=== PATIENT | female | born 1945 | race Caucasian/White ===

== ENCOUNTER → 2018-06-24 12:24 | Outpatient (CLI) | payer MEDICARE, OTHER, SELFPAY ==
[2018-06-24 13:13] LABS: Add Manual Diff / Slide Review NO; Basophils Percent Auto 0.7 % (0-2); Eosinophils Percent Auto 1.3 % (2-4); Hematocrit 38.5 % (36-46); Hemoglobin 13.2 g/dL (12.0-16.0); Lymphocytes Percent Auto 32.2 % (25-40); Mean Corpuscular HGB Conc 34.2 % (30-36); Mean Corpuscular Hemoglobin 32.4 PG (26-34); Mean Corpuscular Volume 94.9 fL (80-100); Monocytes Percent Auto 9.4 % (3-14); Neutrophils Absolute Auto 2400 /uL (3000-5900); Neutrophils Percent Auto 56.4 % (50-75); Platelet Count 234 X10^3/uL (150-400); Red Blood Cell Count 4.06 X10^6/uL (4.0-5.2); Red Cell Distribution Width 13.3 % (11.6-14.8); White Blood Cell Count 4.2 X10^3/uL (4.5-11.0)
[2018-06-24 13:15] LABS: Appearance Urine UA SL CLOUDY; Bilirubin Urine UA NEGATIVE (NEGATIVE); Color Urine UA YELLOW; Glucose Urine UA NEGATIVE (Normal); Ketones Urine UA NEGATIVE (NEGATIVE); Leukocyte Esterase Urine UA NEGATIVE (NEGATIVE); Nitrite Urine UA POSITIVE (Negative); Occult Blood Urine UA 1+ (Negative); Protein Urine UA NEGATIVE (Negative); Urobilinogen Urine UA 0.2 E.U./dL (0.2); pH Urine UA 5.5 (4.5-8.0)
[2018-06-24 13:19] LABS: Hemoglobin A1C% w Est Avg Glu 5.1 % (4.0-6.0)
[2018-06-24 13:29] LABS: Bacteria Urine Many (>30); Culture Indicated Urine Specimen Cultured; RBC Urine 1-5/HPF (0-5/HPF); WBC Urine 1-5/HPF (0-5/HPF)
[2018-06-24 13:56] LABS: BUN Creatinine Ratio 33.3 (6-22); Blood Urea Nitrogen 20 mg/dL (7-17); Calcium 9.7 mg/dL (8.4-10.2); Carbon Dioxide 32 mmol/L (22-32); Chloride 102 mmol/L (98-107); Estimated Glomerular Filt Rate > 60.0 mL/min (>60); Glucose 84 mg/dL (80-110); HEMOLYSIS < 15 (0-50); Potassium 4.2 mmol/L (3.4-5.1); Sodium 142 mmol/L (137-145)
== END ==
PROVIDERS: PCP Family Medicine; Visit Provider Orthopaedic Surgery
DX: Z01.818 Encounter for other preprocedural examination (principal); Z01.812 Encounter for preprocedural laboratory examination; N39.9 Disorder of urinary system, unspecified; R73.09 Other abnormal glucose
CPT/HCPCS: 36415; 80048; 81001; 83036; 85025; 87077; 87086; 87186; 93005

== ENCOUNTER 2018-07-23 05:46 | Inpatient (IN) | payer MEDICARE, OTHER, SELFPAY ==
[2018-07-10 09:32] VITALS: BMI 22.1
[2018-07-23] VITALS (15 sets, daily range): BP systolic 97–117; BP diastolic 49–66; PULSE 63–83; RESP 11–20; TEMP 36.1–36.7; O2SAT 90–99; BMI 22.1
--- NOTE | 2018-07-23 | DI.RAD.S_ITS ---
PROCEDURE: XR HIP W PEL IF DONE RT 2V INDICATIONS: POST OP TECHNIQUE: AP pelvis and lateral view of the right hip acquired. COMPARISON: [facility], , HIP 2V LEFT, 12/22/2009, 14:51. FINDINGS: Bones: Patient is status post right hip arthroplasty, with hardware components in expected positions. The hip joint appears congruent. The visualized bony structures appear intact. There is prior left total hip arthroplasty with anatomic left hip alignment. Soft tissues: Overlying postoperative changes are noted. No suspicious soft tissue densities. IMPRESSION: Post surgical changes from right total hip arthroplasty with anatomic right hip alignment. Dictated by: Marshall Merdano M.D. on 07/23/2018 at 11:40 Approved by: Marshall Medrano M.D. on 07/23/2018 at 11:41
--- NOTE | 2018-07-23 06:00 | DI.RAD.S_ITS ---
PROCEDURE: XR PELVIS 1-2V INDICATIONS: prosthesis placement TECHNIQUE: Intra-operative view of the pelvis and hip acquired. [facility] 13[facility]/2015, 9:57. FINDINGS: Left hip arthroplasty is present. Intraoperative view demonstrating placement of right hip arthroplasty is present. There is good anatomic alignment. Hardware appears intact. IMPRESSION: Intraoperative right hip arthroplasty. Dictated by: Grisel Titus M.D. on 07/23/2018 at 9:51 Approved by: Grisel Titus M.D. on 07/23/2018 at 10:00
[2018-07-23] MEDS: PREGABALIN 75 MG CAPSULE PO (06:59)
[2018-07-23] MEDS: CELECOXIB 200 MG CAPSULE PO (06:59)
[2018-07-23] MEDS: ACETAMINOPHEN 325 MG TABLET 975 MG PO ×3 (06:59→20:44)
[2018-07-23] MEDS: LACTATED RINGERS 1,000 ML 42 ML IV ×2 (07:00→09:05)
[2018-07-23] MEDS: VANCOMYCIN 1,000 MG/200 ML FROZ.PIGGY 200 MG IV (07:45)
--- NOTE | 2018-07-23 07:48 | PM.PREOP ---
Pre-operative Note Interval Note Pre-op Check: Yes History & Physical Reviewed by Physician and Yes Exam Performed Changes: Yes H&P completed within 30 days and has changed as indicated here:: rash from hibiclens on bilateral lower extremities, no open sores
--- NOTE | 2018-07-23 07:49 | PM.OP.1 ---
Operative Date/Time/Diagnoses Date of procedure: 07/23/18 Time of procedure: 09:50 Pre-op diagnosis: right hip oa Post-op diagnosis: same Procedure & Clinicians Procedure: right total hip arthroplasty Same procedure as scheduled: Yes Indications: The patient has had progressively worsening right hip pain with radiographic changes consistent with arthritis. Non-operative management has failed and the patient has requested total hip replacement. The risks, benefits and alternatives to surgery were discussed with the patient prior to proceeding. Risks discussed included, but were not limited to, failure to relieve pain, leg length discrepancy, dislocation, stiffness, infection, nerve damage, deep venous thrombosis, pulmonary embolism, stroke, coma, heart attack, permanent paralysis and , as well as the potential need for eventual revision of the prosthetic. Surgeon: Rachele Parkinson Kiln Remover: Ana Laura Smith Anesthesia Type: General and Spinal Operative Notes Findings: Severe right hip osteoarthritis, good stability Closure Type: primary Specimen(s): none sent Implants & Drains: parkinson and nephew R3 52 anthology 5 standard offset, -3 head, 52 x 36 poly neutral Applied: drain(s) Estimated Blood Loss (mL): 250 Blood products transfused: none Procedure in detail: The patient was seen in the pre-operative area, where the patient identified the right hip as the operative site and this was marked with my initials. The patient received pre-operative antibiotics and was taken to the operating room and placed on the operative table in the left lateral decubitus position after satisfactory anesthesia. A orientation and mobility instructor out was performed. The right leg was prepared from the ankle to the iliac crest with ChloroPrep in the usual fashion and draped through sterile drapes. The hip was approached through an approximately 20 cm incision centered over the greater trochanter and curving gently posteriorly as it went proximally. This was carried sharply to the fascia mahnaz, which was divided and retracted with a self retaining retractor. The trochanteric bursa was excised with care being taken to avoid the sciatic nerve, which was identified and protected throughout the case. The short external rotators were incised and the capsulomuscular flap was raised and tagged for later repair. The hip was dislocated, and a femoral neck osteotomy performed approximately 15 mm above the lesser trochanter. Retractors were placed around the femur. The canal was opened with a box cutting osteotome, followed by a T handled reamer and a lateralizing reamer. The chili pepper broach was then used, followed by sequential broaching until there was good stability of the broach in the femur. Retractors were placed to expose the acetabulum. The labrum and central soft tissues were removed. Reaming was performed initially going up in 2 mm increments, then 1 mm increments until good bite was obtained with an odd sized reamer. The cup 1 mm larger than the last reamer was then inserted using the appropriate anteversion guides. A trial neutral liner was placed. The broach was placed in the canal. A trial head and neck were then placed and the hip relocated and checked for leg length and stability. An intraoperative film confirmed the component position and no evidence of fracture. The patient was stable in the position of sleep, of squatting, and could be put through a range of motion with 45 degrees internal rotation without dislocation. At 90 degrees flexion, internal rotation to 70 was possible before dislocation. This was felt to be satisfactory and the appropriate components were opened, and the trials were removed. The acetabular liner was impacted into position. The final stem was then impacted into the prepared femoral canal. A brief Betadine soak was performed while trialing with head options. The hip was meticulously irrigated with normal saline. Finally the femoral head was impacted onto the stem. The acetabulum was cleared of all material and the hip relocated one final time. The capsulomuscular flap was then repaired to the greater trochanter though an awl hole using the tag sutures. The short external rotators were repaired with a black braided nylon. A deep drain was placed and brought out anteriorly. The fascia mahnaz was closed with black braided nylon. The subcutaneous layer was closed with barbed sutures and SteriStrips. An Aquacel Ag dressing was applied and the patient was taken to recovery having tolerated the procedure well. Complications: none Condition: stable Disposition: Acute Care Plan for aftercare: The patient will be maintained on a standard total hip replacement protocol with weight bearing as tolerated and posterior hip precautions. The patient will receive Aspirin and sequential compression devices for DVT prophylaxis. The patient will be discharged home when safe for the home environment.
[2018-07-23] MEDS: CEFAZOLIN 2 GM/100 ML FROZ.PIGGY IV (08:20)
--- NOTE | 2018-07-23 08:29 | SUR.OPER ---
Lateral on padded OR bed. Gel axillary roll. Arms secured on padded armboard with pillow supporting top arm. Padded hip positioner braces x4 - anterior and posterior chest and pelvis. Additional gel pad used anterior pelvis. Gel pad under bottom leg from knee to foot and secured with tape over sheet.
--- NOTE | 2018-07-23 08:30 | SUR.OPER ---
Pt. developed light red rash on leg from chloraprep pre-op wash, Dr. Kemp aware and ordered the OR prep be betadine
[2018-07-23] MEDS: BUPIVACAINE LIPOSOME 266 MG/20 ML VIAL INJ (08:37)
[2018-07-23] MEDS: BUPIVACAINE 0.25% W/ EPI VIAL 50 ML INJ (08:37)
[2018-07-23] MEDS: TRANEXAMIC ACID 1,000 MG VIAL 1000 MG INJ (08:38)
[2018-07-23] MEDS: POVIDONE-IODINE 15 ML, SODIUM CHLORIDE 0.9% 250 ML TOP (08:41)
[2018-07-23] MEDS: SODIUM CHLORIDE IRRIG SOLUTION 250 ML, EPINEPHrine 1 MG IRR (08:43)
--- NOTE | 2018-07-23 10:35 | SUR.PHASEI ---
Report called to VALERIA Terry
--- NOTE | 2018-07-23 10:54 | SUR.PHASEI ---
Pt transferred to the floor, report given to Tyson. VS stable. IV saline locked. Drsg cdi, HV to compression suction, patent with sanguineous fluid. +pp to RLE, spinal approx L2. Dentures in place x2. Belongings bag with patient.
[2018-07-23] MEDS: LACTATED RINGERS 1,000 ML 125 ML IV ×2 (11:33→19:31)
--- NOTE | 2018-07-23 15:15 | PT.IIE ---
Current Diagnoses Unilateral primary osteoarthritis, right hip (07/23/18) Surgery Performed Operation Date: 07/23/18 07:45 Actual Procedures p Total Hip Arthroplasty(Right) - Rachele Kemp MD Surgical History (Last Updated 07/10/18 @ 10:48 by Sofia Drummond, RN) History of back surgery (Acute) History of cholecystectomy (Acute) History of colonoscopy (Acute) History of esophagogastroduodenoscopy (EGD) (Acute) History of total hip arthroplasty (Acute) History of tubal ligation (Acute) Status post hysterectomy (Acute) Medical History (Last Updated 07/12/18 @ 12:24 by Sofia Drummond, RN) Adrenal nodule (Acute) Allergic rhinitis (Acute) Anxiety (Acute) Asthma (Acute) Balance problem (Acute) Wright's palsy (Acute) COPD mixed type (Acute) Cataract fragments in both eyes following surgery (Acute) Cervical spondylosis (Acute) Chronic low back pain (Acute) Constipation (Acute) Degenerative disc disease (Acute) Depression (Acute) Diverticulosis (Acute) Former smoker (Acute) History of foot fracture (Acute) History of pneumothorax (Acute) Hyperlipidemia (Acute) Impaired vision (Acute) Lumbar stenosis (Acute) Memory problem (Acute) Nodule of right lung (Acute ~2014) Non-melanoma skin cancer (Acute) Non-small cell cancer of left lung (Acute ~2018) Osteoarthritis (Acute) Osteopenia (Acute) PFO (patent foramen ovale) (Acute) Primary localized osteoarthrosis of pelvic region (Acute) Pulmonary emphysema (Acute) Rheumatoid factor positive (Acute) Sinus bradycardia (Acute) Status post tubal ligation (Acute) TIA (transient ischemic attack) (Acute) Physical Therapy Inpatient Evaluation/Re-Eval M1 PT/OT-IP Prior Functional Status Start: 07/23/18 16:50 Freq: NEEDED Status: Active Protocol: Document 07/23/18 15:15 AB (Rec: 07/23/18 17:08 AB [id number]) Medical Review Prior Functional Status Medical History Reviewed Yes Communication able to make needs known but with slight confusion Mobility and Gait spouse present during PT eval pt stated that she is independent with all mobilities and ambulation without AD; if ambulating when shopping: using cart for support Social History Household Members spouse Living Arrangements House Number of Stairs To Enter/Railing? has 1 step to enter and then one step in the house to get to the bathroom Home Environment Standard Height Toilet Walk in Shower Home Equipment Bedside Commode Shower Seat with Backrest Hand Held Shower Grab Bars In Shower Employment Status Retired M2 PT-IP Current Condition Start: 07/23/18 16:50 Freq: NEEDED Status: Active Protocol: Document 07/23/18 15:15 AB (Rec: 07/23/18 17:08 AB [id number]) Physical Therapy Current Condition Current Condition Evaluation Date 07/23/18 Treatment Diagnosis s/p R ELY; difficulty in walking Onset Date 07/23/18 Precautions Posterior Hip Precautions No Hip Flexion > 90 degrees No Hip Internal Rotation No Hip Adduction Weight Bearing Status Weight Bearing Status Weight Bear as Tolerated M3 PT-IP Subjective Start: 07/23/18 16:50 Freq: NEEDED Status: Active Protocol: Document 07/23/18 15:15 AB (Rec: 07/23/18 17:08 AB [id number]) Subjective Physical Therapy Visit Type Type Initial Evaluation Visit Start Time 15:15 Visit Stop Time 16:15 Total Visit Minutes 60 Number of WEB USER EXPERIENCE STRATEGIST Visits 0 Physical Therapy Visit Comments Patient Comments pt agreeable to do PT Therapy Pain Assessment Pain When Pain Assessed At Rest Pain Present Pain Present Pain Reported Location Right Hip Intensity 5 Scale Used Numeric (1 - 10) Pain Management Techniques Apply Cold Re-positioning M4 PT-IP Mobility and Gait Start: 07/23/18 16:50 Freq: NEEDED Status: Active Protocol: Document 07/23/18 15:15 AB (Rec: 07/23/18 17:08 AB [id number]) PT-Bed Mobility Assessment Supine to Sit Supine to Sit Standby Assistance Scooting Scooting to Edge of Bed Moderate Assistance PT-Transfer Assessment Sit to and From Stand Sit to and from Stand Contact Guard Assistance Equipment Transfer Assistive Device Gait Belt Front Wheeled Walker Orthotic/Prosthetic Devices or Brace: No Transfers Transfer Destination Chair Transfer Technique pt ambulated to the chair Gait Assessment Gait Gait Assistance Required: Contact Guard Assist Distance (Feet) 75 Able to Maintain Weight Bearing Status Yes During Gait Assistive Devices Assistive Device Gait Belt Front Wheeled Walker Orthotic/Prosthetic Devices or Brace: No Gait Deviations General Gait Pattern Antalgic Decreased Stride Length Decreased Feet Clearance Factors Limiting Gait Function Factors Limiting Gait Function Decreased Activity Tolerance Decreased Strength Difficulty Following Directions Limited Range of Motion Pain Poor Balance Poor Safety Awareness Comments Gait Comments pt ambulated to the chair using FWW min A and cues. pt requires cues to maintain R posterior hip precautions. pt with slight confusion and needs constant cues for safety . BP in supine prior to mobilization: 113/50 O2 sat 91 % pt with c/o slight dizziness sitting on EOB: BP 105/72. pt agreed to stand and stated that dizziness decrease and was able to ambulate to the chair using FWW min A. BP after ambulation sitting on chair: 112/57. pt rested and stated dizziness is gone and wants to ambulate again and ambulated in hallway without any incidences. pt agreed to sit up on chair. set up pt on chair. Left pt with nurse. PT-Balance Assessment Sitting Balance and Reactions Static Sitting Balance Ability Good Dynamic Sitting Balance Ability Good Standing Balance and Reactions Static Standing Balance Ability Fair Dynamic Standing Balance Ability Fair Device Used FWW M5 PT-IP Objective Assessments Start: 07/23/18 16:50 Freq: NEEDED Status: Active Protocol: Document 07/23/18 15:15 AB (Rec: 07/23/18 17:08 AB [id number]) Orientation Orientation/Cognition Level of Alertness Alert Orientation Name Place Situation Safety Awareness Decreased Safety Awareness Memory Description Short Term Impaired It Systems Administrator Impaired Comments with slight confusion; requires constant cues to maintain hip precautions Strength Lower Extremity Strength Assessment Right Impaired Hip 3+/5 Knee 3+/5 Muscle Tone Muscle Tone WNL Yes M6 PT-IP Treatment Start: 07/23/18 16:50 Freq: NEEDED Status: Active Protocol: Document 07/23/18 15:15 AB (Rec: 07/23/18 17:08 AB [id number]) Physical Therapy Treatment Education Education Provided Precautions Weight Bearing Status Post-Op Packet Safety M7 PT-IP Assessment and Plan Start: 07/23/18 16:50 Freq: NEEDED Status: Active Protocol: Document 07/23/18 15:15 AB (Rec: 07/23/18 17:08 AB [id number]) PT Summary Assessment and Plan Potential Rehabilitation Potential Good Status of Condition at Evaluation Stable Summary Impairments Pain ROM Strength Balance Coordination Sensation Tone Cognition Bed Mobility Transfers Gait Activity Tolerance Assessment Summary pt requiring CGA with mobility but with constant cues to maintain hip precautions. Spouse is very involved with pt care and able to remind pt on her precautions. Spouse stated that he will try to be in the hospital around 8 am and agreeable to do training if needed. informed regarding doing stair training and agreed. Pt is set up for outpt PT. Goals Bed Mobility Goal Standby Assistance Transfer Goal Standby Assistance Front Wheeled Walker Gait Goal Standby Assistance Front Wheel Walker Gait Distance 150 Other Goals up/down 1 step using FWW SBA Days to Meet Goals 2 Frequency of Treatment Frequency Of Treatment Twice a Day Treatment Plan Physical Therapy Treatment Plan Bed Mobility Training Transfer Training Gait Training Therapeutic Exercise Balance Retraining Post Op Education Discharge Planning Hot or Cold Pack Neuromuscular Re-ed Coordination Retraining Manual Therapy Other Recommendations and Next Treatment stair climbing Focus Recommendations To Nursing Amount of Assist Needed 1 Person Assist Discharge Recommendations PT Discharge Recommendations Home with 23/04 Assist Outpatient PT
[2018-07-23] MEDS: KETOROLAC 15 MG/ML VIAL IV (16:05)
[2018-07-23] MEDS: CEFAZOLIN VIAL 1 GM in SODIUM CHLORIDE 0.9% 100 ML 200 ML IV (20:41)
[2018-07-23] MEDS: ASPIRIN EC 81 MG TABLET PO (20:45)
[2018-07-24 00:35] VITALS: BP 109/54; PULSE 83; RESP 16; TEMP 36.6; O2SAT 92
[2018-07-24 03:45] VITALS: BP 118/41; PULSE 69; RESP 16; TEMP 36.6; O2SAT 96
--- NOTE | 2018-07-24 04:20 | PC.NURSE ---
Pt is A and O x 4, VSS, afebrile. Pt is able to ambulate to BR effectively with FWW and SBA x 1. Pt rates pain 4/10, gets good relief from ice packs and APAP. HV output = small amount sanguineous liquid and site is C/I with scant sanguineous. Pt is drinking well and voiding qs clear yellow, is continent. IVF discontinued. Drsg is C/D/I. Pt able to sleep this shift.
[2018-07-24] MEDS: CEFAZOLIN VIAL 1 GM in SODIUM CHLORIDE 0.9% 100 ML 200 ML IV (04:26)
[2018-07-24] MEDS: IBUPROFEN 600 MG TABLET PO (04:27)
[2018-07-24] MEDS: KETOROLAC 15 MG/ML VIAL IV (06:18)
[2018-07-24 07:39] LABS: Hematocrit 30.7 % (36-46); Hemoglobin 10.7 g/dL (12.0-16.0)
--- NOTE | 2018-07-24 07:56 | PM.DS.1 ---
History of Present Illness Date Patient Seen: 07/24/18 Time Patient Seen: 07:56 Chief complaint: total hip arthroplasty [id number] Narrative: The patient has had progressively worsening right hip pain with radiographic changes consistent with arthritis. Non-operative management has failed and the patient has requested total hip replacement. The risks, benefits and alternatives to surgery were discussed with the patient prior to proceeding. Risks discussed included, but were not limited to, failure to relieve pain, leg length discrepancy, dislocation, stiffness, infection, nerve damage, deep venous thrombosis, pulmonary embolism, stroke, coma, heart attack, permanent paralysis and , as well as the potential need for eventual revision of the prosthetic. Patient seen bedside. Discharge Providers Date of admission: 07/23/18 05:46 Primary care physician: Robb Ramirez MD Consults: 07/10/18 10:41 Consult to Key Account Executive Routine Comment: Hx depression, primarily R/T cancer diagnosis 07/23/18 06:00 Consult to Anesthesiology Routine Comment: Consulting Provider: Anesthesiologist Reason for consultation: Regional block for post operative pain control 07/23/18 10:54 Consult to Discharge Planning Routine Comment: Consult to Physical Therapy Evaluate & Treat Comment: Physician Instructions: post op ELY protocol Consult to Respiratory Therapy Evaluate & Treat Comment: Physician Instructions: Evaluate and treat Discharge provider: Anny Vela PA-C Discharge Date: 07/24/18 Summary Discharge Diagnosis: right hip osteoarthritis Hospital Course: Patient was admitted status post right total hip arthroplasty with Dr. Kemp on 07/23/18. Patient tolerated procedure well with no major complications. Patient transferred to floor and seen by physical therapy who recommended that she be discharged home with outpatient PT. Her pain is well controlled with Ibuprofen 600mg. Patient is stable and ready for discharge on 07/24/18. Her is home to assist her. Calfs are soft, non tender and compressible bilaterally. Status at Discharge Functional status at discharge: uses cane/walker Overall status at discharge: patient is progressing back to baseline Time Spent with Patient Less than 30 minutes Exam Vital Signs (past 8 hours): - 07/24/18 00:35 07/24/18 03:45 Temperature 97.8 F 97.9 F Pulse Rate 83 69 Respiratory Rate 16 16 Blood Pressure 109/54 L 118/41 L Pulse Oximetry 92 96 Oxygen Delivery Method Room Air Oxygen Flow Rate 0 Narrative Exam Narrative: Patient is AOx3. Patient is laying in bed comfortably without any signs of distress. Her is bedside. Radial and dorsalis pedis pulses 2+ and symmetric. Muscle strength 5/5 in dorsiflexion, plantarflexion and hydro technician bilaterally. Hemovac drain intact on R hip with mild output. Sensation to light touch intact in LE. R hip dressing CDI. DVT compression devices intact bilaterally on LE. Calfs are soft, non tender and compressible bilaterally. Patient reports that her pain is manageable at this time. She reports that her will be home to assist her upon discharge. Patient reports PT went good. She is expected to do stairs before discharge with PT. She denies any nausea, vomiting, fever, chills, SOB or chest pain. Patient is [employer] and reports having her prescription filled at home. Objective Labs Result Diagrams: 07/24/18 06:53 Labs: Laboratory Results - last 24 hr 07/24/18 06:53 Hgb 10.7 L Hct 30.7 L Discharge Plan Discharge Plan Patient Disposition: Home Discharge comment: continue aspirin for DVT prophylaxis Discharge Med Rec/Prescriptions Prescriptions: Continue simvastatin 10 mg Tablet 10 mg PO DAILY RF: 0 aspirin [Aspirin Low Dose] 81 mg Tablet,Delayed Release (Dr/Ec) 81 mg PO DAILY RF: 0 albuterol sulfate 90 mcg/actuation Hfa Aerosol Inhaler 2 puff INHALATION Q4H PRN (Reason: Wheezing) RF: 0 tiotropium bromide [Spiriva with HandiHaler] 18 mcg Capsule, W/Inhalation Device 1 cap INHALATION DAILY RF: 0 naproxen sodium 220 mg Capsule 220 mg PO BID PRN (Reason: Pain) RF: 0 peg 400-propylene glycol [Systane (propylene glycol)] 0.4-0.3 % Drops 1 drp EYE-BOTH PRN PRN (Reason: Dry or Irritated eye) RF: 0 paroxetine HCl [Paxil] 20 mg Tablet 20 mg PO DAILY RF: 0 omega 3-kfb-cdl-fish oil [Fish Oil] 1,000 mg (120 mg-180 mg) Capsule 1 cap PO BID RF: 0 Follow up/Referrals: Robb Ramirez MD [Primary Care Provider] - (follow up with your decorating inspector after discharge) Rachele Kemp MD [Physician] - 07/30/18 1:20 pm (Follow up at [facility] with Dr. Kemp at schedule appointment.) Provider Discharge Instructions Diet: Diet as Tolerated Activity: Maintain standard total hip replacement protocol with weight bearing as tolerated and posterior hip precautions. Use cane/walker until cleared by PT. Cold/Heat Therapy: Cold compress as needed. Skin/Wound/Dressing Care Report to your healthcare provider any signs of infection, such as:: chills, fever, night sweats, increased pain and unusual drainage Dressing: Keep clean and dry. Visit Report/Discharge Packet Instructions: DI for Hip Replacement Visit Report Forms: Stroke Signs & Symptoms Discharge Data Primary Care Provider: Robb Ramirez Attending Provider: Rachele Kemp Admit Date/Time: 07/23/18 05:46 Discharges patient from system. Discharge Date/Time: 07/24/18 13:46
--- NOTE | 2018-07-24 08:07 | P.DS_ITS ---
History of Present Illness Date Patient Seen: 07/24/18 Time Patient Seen: 07:56 Chief complaint: total hip arthroplasty [id number] Narrative: The patient has had progressively worsening right hip pain with radiographic changes consistent with arthritis. Non-operative management has failed and the patient has requested total hip replacement. The risks, benefits and alternatives to surgery were discussed with the patient prior to proceeding. Risks discussed included, but were not limited to, failure to relieve pain, leg length discrepancy, dislocation, stiffness, infection, nerve damage, deep venous thrombosis, pulmonary embolism, stroke, coma, heart attack, permanent paralysis and , as well as the potential need for eventual revision of the prosthetic. Patient seen bedside. Discharge Providers Date of admission: 07/23/18 05:46 Primary care physician: Robb Ramirez MD Consults: 07/10/18 10:41 Consult to Fishing Hand Routine Comment: Hx depression, primarily R/T cancer diagnosis 07/23/18 06:00 Consult to Anesthesiology Routine Comment: Consulting Provider: Anesthesiologist Reason for consultation: Regional block for post operative pain control 07/23/18 10:54 Consult to Discharge Planning Routine Comment: Consult to Physical Therapy Evaluate & Treat Comment: Physician Instructions: post op ELY protocol Consult to Respiratory Therapy Evaluate & Treat Comment: Physician Instructions: Evaluate and treat Discharge provider: Anny Vela PA-C Discharge Date: 07/24/18 Summary Discharge Diagnosis: right hip osteoarthritis Hospital Course: Patient was admitted status post right total hip arthroplasty with Dr. Kemp on 07/23/18. Patient tolerated procedure well with no major complications. Patient transferred to floor and seen by physical therapy who recommended that she be discharged home with outpatient PT. Her pain is well controlled with Ibuprofen 600mg. Patient is stable and ready for discharge on 07/24/18. Her is home to assist her. Calfs are soft, non tender and compressible bilaterally. Status at Discharge Functional status at discharge: uses cane/walker Overall status at discharge: patient is progressing back to baseline Time Spent with Patient Less than 30 minutes Exam Vital Signs (past 8 hours): - 07/24/18 00:35 07/24/18 03:45 Temperature 97.8 F 97.9 F Pulse Rate 83 69 Respiratory Rate 16 16 Blood Pressure 109/54 L 118/41 L Pulse Oximetry 92 96 Oxygen Delivery Method Room Air Oxygen Flow Rate 0 Narrative Exam Narrative: Patient is AOx3. Patient is laying in bed comfortably without any signs of distress. Her is bedside. Radial and dorsalis pedis pulses 2+ and symmetric. Muscle strength 5/5 in dorsiflexion, plantarflexion and investigation division captain bilaterally. Hemovac drain intact on R hip with mild output. Sensation to light touch intact in LE. R hip dressing CDI. DVT compression devices intact bilaterally on LE. Calfs are soft, non tender and compressible bilaterally. Patient reports that her pain is manageable at this time. She reports that her will be home to assist her upon discharge. Patient reports PT went good. She is expected to do stairs before discharge with PT. She denies any nausea, vomiting, fever, chills, SOB or chest pain. Patient is [employer] and reports having her prescription filled at home. Objective Labs Result Diagrams: 07/24/18 06:53 Labs: Laboratory Results - last 24 hr 07/24/18 06:53 Hgb 10.7 L Hct 30.7 L Discharge Plan Discharge Plan Patient Disposition: Home Discharge comment: continue aspirin for DVT prophylaxis Discharge Med Rec/Prescriptions Prescriptions: Continue simvastatin 10 mg Tablet 10 mg PO DAILY RF: 0 aspirin [Aspirin Low Dose] 81 mg Tablet,Delayed Release (Dr/Ec) 81 mg PO DAILY RF: 0 albuterol sulfate 90 mcg/actuation Hfa Aerosol Inhaler 2 puff INHALATION Q4H PRN (Reason: Wheezing) RF: 0 tiotropium bromide [Spiriva with HandiHaler] 18 mcg Capsule, W/Inhalation Device 1 cap INHALATION DAILY RF: 0 naproxen sodium 220 mg Capsule 220 mg PO BID PRN (Reason: Pain) RF: 0 peg 400-propylene glycol [Systane (propylene glycol)] 0.4-0.3 % Drops 1 drp EYE-BOTH PRN PRN (Reason: Dry or Irritated eye) RF: 0 paroxetine HCl [Paxil] 20 mg Tablet 20 mg PO DAILY RF: 0 omega 3-ufs-ror-fish oil [Fish Oil] 1,000 mg (120 mg-180 mg) Capsule 1 cap PO BID RF: 0 Follow up/Referrals: Robb Ramirez MD [Primary Care Provider] - (follow up with your brake liner after discharge) Rachele Kemp MD [Physician] - 07/30/18 1:20 pm ([place] [facility] at schedule appointment.) Provider Discharge Instructions Diet: Diet as Tolerated Activity: Maintain standard total hip replacement protocol with weight bearing as tolerated and posterior hip precautions. Use cane/walker until cleared by PT. Cold/Heat Therapy: Cold compress as needed. Skin/Wound/Dressing Care Report to your healthcare provider any signs of infection, such as:: chills, fever, night sweats, increased pain and unusual drainage Dressing: Keep clean and dry. Visit Report/Discharge Packet Instructions: DI for Hip Replacement Visit Report Forms: Stroke Signs & Symptoms Discharge Data Primary Care Provider: Robb Ramirez Attending Provider: Rachele Kemp Admit Date/Time: 07/23/18 05:46 Discharges patient from system. Discharge Date/Time: 07/24/18 13:46
[2018-07-24 08:30] VITALS: BP 112/55; PULSE 79; RESP 20; TEMP 36.6; O2SAT 94
[2018-07-24] MEDS: SIMVASTATIN 10 MG TABLET PO (09:14)
[2018-07-24] MEDS: PARoxetine 20 MG TABLET PO (09:14)
[2018-07-24] MEDS: ASPIRIN EC 81 MG TABLET PO (09:14)
[2018-07-24] MEDS: ACETAMINOPHEN 325 MG TABLET 975 MG PO (09:14)
--- NOTE | 2018-07-24 10:15 | PT.IPTN ---
Current Diagnoses Unilateral primary osteoarthritis, right hip (07/23/18) Surgery Performed Operation Date: 07/23/18 07:45 Actual Procedures p Total Hip Arthroplasty(Right) - Rachele Kemp MD Physical Therapy Treatment Note M2 PT-IP Current Condition Start: 07/23/18 16:50 Freq: NEEDED Status: Active Protocol: Document 07/23/18 15:15 AB (Rec: 07/23/18 17:08 AB [id number]) Physical Therapy Current Condition Current Condition Evaluation Date 07/23/18 Treatment Diagnosis s/p R ELY; difficulty in walking Onset Date 07/23/18 Precautions Posterior Hip Precautions No Hip Flexion > 90 degrees No Hip Internal Rotation No Hip Adduction Weight Bearing Status Weight Bearing Status Weight Bear as Tolerated M3 PT-IP Subjective Start: 07/23/18 16:50 Freq: NEEDED Status: Active Protocol: Document 07/24/18 10:02 SA (Rec: 07/24/18 10:14 SA [id number]) Subjective Physical Therapy Visit Type Type Treatment Note Visit Start Time 08:50 Visit Stop Time 09:18 Total Visit Minutes 28 Notes Conducted caregiver training with with focus on up/ down stairs, gait and ELY precautions. Number of EXECUTIVE ASSISTANT TO GENERAL COUNSEL Visits 1 Physical Therapy Visit Comments Patient Comments Pt agreeable to PT, looking forward to going home. Therapy Pain Assessment Pain When Pain Assessed During Mobility Pain Present Pain Present Pain Reported Location Right Hip Intensity 2 Scale Used Numeric (1 - 10) Pain Management Techniques Timing of Activity with Medications M4 PT-IP Mobility and Gait Start: 07/23/18 16:50 Freq: NEEDED Status: Active Protocol: Document 07/24/18 10:02 SA (Rec: 07/24/18 10:14 SA [id number]) PT-Bed Mobility Assessment Rolling Type of Rolling Roll to Right Supine to Sit Supine to Sit Standby Assistance Sit to Supine Sit to Supine Standby Assistance Scooting Scooting to Edge of Bed Contact Guard Assistance PT-Transfer Assessment Sit to and From Stand Sit to and from Stand Standby Assistance Equipment Transfer Assistive Device Gait Belt Front Wheeled Walker Orthotic/Prosthetic Devices or Brace: No Transfers Transfer Destination Bed Chair Transfer Ability Level of Assist Standby Assistance Comments Mobility Comments Pt uses FWW correctly and is able to maintain hip precautions with verbal cues. present and offers cues/support. Gait Assessment Gait Gait Assistance Required: Contact Guard Assist Distance (Feet) 120 Able to Maintain Weight Bearing Status Yes During Gait Assistive Devices Assistive Device Gait Belt Front Wheeled Walker Orthotic/Prosthetic Devices or Brace: No Gait Deviations General Gait Pattern Antalgic Decreased Stride Length Decreased Feet Clearance Factors Limiting Gait Function Factors Limiting Gait Function Decreased Activity Tolerance Decreased Strength Difficulty Following Directions Limited Range of Motion Pain Poor Balance Poor Safety Awareness Comments Gait Comments GAit training in nunez with SBA , cues for upright posture, even step length and continuation of gait with forward pregression of FWW. Stair Climbing Assessment Evaluation Level of Assist On Stairs Contact Guard Assistance Devices Stair Climbing Assistive Devices Right Railing Technique/Endurance Stair Climbing Direction Ascend and Descend Stair Climbing Technique Step to Step Number of Steps Climbed 3 Query Text: Stair Climbing Set # Repetitions (reps) 2 Comments Stair Climbing Comments able to reverse demonstrate safe ascend/ descend of 3 stairs with B rails and step to gait pattern , provides CGA. PT-Balance Assessment Sitting Balance and Reactions Static Sitting Balance Ability Good Dynamic Sitting Balance Ability Good M5 PT-IP Objective Assessments Start: 07/23/18 16:50 Freq: NEEDED Status: Active Protocol: Document 07/23/18 15:15 AB (Rec: 07/23/18 17:08 AB [id number]) Orientation Orientation/Cognition Level of Alertness Alert Orientation Name Place Situation Safety Awareness Decreased Safety Awareness Memory Description Short Term Impaired Waiter/Waitress Bar Impaired Comments with slight confusion; requires constant cues to maintain hip precautions Strength Lower Extremity Strength Assessment Right Impaired Hip 3+/5 Knee 3+/5 Muscle Tone Muscle Tone WNL Yes M6 PT-IP Treatment Start: 07/23/18 16:50 Freq: NEEDED Status: Active Protocol: Document 07/24/18 10:02 (Rec: 07/24/18 10:14 [id number]) Physical Therapy Treatment Education Education Provided Precautions Weight Bearing Status Post-Op Packet Safety M7 PT-IP Assessment and Plan Start: 07/23/18 16:50 Freq: NEEDED Status: Active Protocol: Document 07/24/18 10:02 (Rec: 07/24/18 10:14 [id number]) PT Summary Assessment and Plan Summary Assessment Summary Verbal/visual review of hp precautions with patient and , review of ELY protocol. Stair and gait training with caregiver training with . Frequency of Treatment Frequency Of Treatment Twice a Day Recommendations To Nursing Amount of Assist Needed 1 Person Assist Discharge Recommendations PT Discharge Recommendations Home with 23/04 Assist Outpatient PT
--- NOTE | 2018-07-24 10:47 | PC.NURSE ---
Pt up with P.T. and walked in halls. Will walk with P.T. again after lunch and then discharge home. Pt hemovac removed and gauze drsg applied.
--- NOTE | 2018-07-24 12:35 | CM.DANOTE ---
Patient is a 73 year old female who was admitted on 07/23/18 for Total Hip Arthro. Pt has [facility] and [employer] for insurance and her PCP is Dr. Ramirez. EMR was reviewed. Per Ortho MD, pt safe for d/c home later today pending further PT CG training. Per PT, pt did well with ambulation and stair training and CG training and safe for d/c home with spouse assist and outpt PT. SW met bedside with pt and spouse and explained role and updated White board and pt confirmed that she lives at home in [place] with her and is Independent with ADL's at baseline and does not use equipment to ambulate. Pt denies any hx of HH or SNF and states her preference is home with spouse and they have outpt PT already set up. Pt feels she did well with therapy team and no current concerns about discharging home today via spouse POV. Plan: Patient to d/c home later today after further PT via spouse POV. No SW needs at this time. LINDA Barnes Discharge Planning/Care Management CM Discharge Assessment Start: 07/24/18 12:30 Freq: Status: Active Protocol: Document 07/24/18 12:30 BF (Rec: 07/24/18 12:35 [id number]) Discharge Planning Assessment Assigned Hse Specialist LINDA Palma DPOA/Assigned Designee Name spouse Chinedu Contact Information [phone] Advance Directives? No History Provided By Patient Significant Other Medical Record Has Patient been admitted in last 30 No days? Prior Living Arrangements House Household Members spouse Type of transporation used prior to Drives own vehicle admit Independent with ADL's Yes Is patient alert and oriented? Yes Caregiver for Another No DME Already Rented / Owned Bath Bench Elevated Toilet Seat FWW / Walker Comment Likely home with spouse and outpt PT Barriers to Discharge No Discharge Plan Home Transportation Arrangement Spouse bedside and plans to transport Referrals Initiated None needed Whiteboard Updated in Patient Room with Yes name and ext. # of Hse Specialist Review Status In Process Please Provide Date Initial DC 07/24/18 Assessment Was Performed Next Review Type Continued Stay Review Pre-Anesthesia Assessment Start: 07/10/18 09:32 Freq: Status: Complete Protocol: Document 07/10/18 09:32 VLJ (Rec: 07/10/18 10:41 VLJ [id number]) Pre-Anesthesia Assessment Patient Also Known As (AKA) Delna Patient Information Reviewed Via Chart Review Phone Assessment Assessment Completed With Patient Primary Care Provider Robb Ramirez Medical Clearance Received Yes Seen Specialist in Last 12 Months Yes Specialist Seen Orthopedist Co Director Comment Pulm - Dr. Easton Primary Language Kazakh Extension Service Specialist In Charge Required No Height 160.02 cm Weight 56.699 kg Body Mass Index (BMI) 22.1 Hearing Ability Hard of Hearing Visual Impairment Partially Limited Visual Assist Glasses Dentition Type Full- Upper & Lower Barriers to Learning Auditory Memory Visual Hx Anesthesia Reactions No Hx Family Anesthesia Reaction No Hx Malignant Hyperthermia No Hx Blood Transfusions No Anesthesia Review Requested No Political Theory Professor No alcohol intake former Smoking Status Former smoker Smoking packs per day 2 Has it been 2 weeks or less since No patient quit smoking how long ago did patient quit smoking 2012 Smoking pack-years 75 Substance Use Type tranquilizers Pain Present Pain Reported Comment Right hip and back Musculoskeletal Symptoms Abnormal Gait Atrophy Back Pain Difficulty Walking Joint Pain Joint Stiffness Limited Range of Motion Muscle Weakness History of Falling (Recent or History of Yes ) Patient is completely paralyzed or No completely immobile Ambulatory Aid None/bed rest/nurse assist Gait/Transferring Weak Impaired Mental Status Oriented to own ability Comment Balance problem Is patient on oxygen? No Does patient have NAVARRETE/SOB Yes Hx Sleep Apnea No Currently Taking a Beta Barbara No Can You Climb a Flight of Stairs Without No: Depends on height of SOB stairway Hx Chest Pain No Hx SOB No Hx Syncope or Dizziness No Anti-Coagulant Therapy No Has a Aoc Aadc Operations Staff Officer No Cardiac Testing No Hx Pacemaker/ICD No Diet Type At Home Low Carb Low Fat dysphagia No Comment High protein, lots of vegetables, no wheat flour Bladder Pattern Nocturia Urgency Urinary Catheter Present No Hx Urinary Self Catheterization No Diabetes No Patient No Lactating No Hx Drug Resistant Organism No Presence of External or Internal Medical Yes: Hardware in spine, Left Devices hip Have you traveled outside the [facility] in the last 30 days? Marital Status Lives With spouse Prior Living Arrangements House Number of Floors (Floors) One Floor Number of Stairs To Enter/Railing? One step into house, one into bathroom Support System Child/Children Family Spouse Does the Patient Have Assistance After Yes: Plans to go home same day Surgery or next day Patient Discharge Plan Description Return Home Comment Live converted into living space, Lives next door to adult child/family Feels Safe in Current Environment Yes Been Physically Hurt or Threatened By a No Person in Current Environment Do you have thoughts of harming yourself None or others? Are you currently considering suicide? No Do you have a plan to hurt yourself or No Plan others? Do You Have Any Spiritual Beliefs That No May Affect Your HC Choices? Do You Have Any Cultural Practices That No May Affect Your HC Choices? Spiritual Referral None Who Can We Speak to About Patient's Care Family & Friends Identifying Code for Release of Patient Declined Information Health Care Proxy/Next of Kin - Chinedu Seese Health Care Proxy Emergency Contact Name SameLuciana Seese - daughter Emergency Contact Phone Number Same Advance Directives? No: Mailed to patient/spouse Power of Insurance Claims Adjuster No PAC Instructions Assistance for 24 hours post- op Do not shave/clip surgical site Durable medical equipment Medications to take/avoid Nasal antibiotic No ETOH/petroleum product on skin DOS NPO Ortho class Post-op transportation Pre-op antibiotic Pre-surgical wash Sensory aids Sturdy shoes/comfortable clothes Do not bring valuables and remove jewelry Comment Check-in [id number]
[2018-07-24 13:29] VITALS: BP 114/52; PULSE 69; RESP 18; TEMP 36.7; O2SAT 94
--- NOTE | 2018-07-24 13:43 | PC.NURSE ---
Pt dressed and ready for discharge home with Spouse. IV removed. Pt has just worked with P.T. and states she feels comfortable with going home. Went over d/c instructions with Pt and Spouse-discussed d/c meds, time of last dose, reviewed d/c meds and Pt already has filled her scripts prior to admit. Stroke education performed. Pt ready for discharge home and was taken out via w/c to pov by EMPLOYMENT REPRESENTATIVE with all belongings.
--- NOTE | 2018-07-24 14:54 | PT.IPTN ---
Current Diagnoses Unilateral primary osteoarthritis, right hip (07/23/18) Surgery Performed Operation Date: 07/23/18 07:45 Actual Procedures p Total Hip Arthroplasty(Right) - Rachele Kemp MD Physical Therapy Treatment Note M2 PT-IP Current Condition Start: 07/23/18 16:50 Freq: NEEDED Status: Discharge Protocol: Document 07/23/18 15:15 AB (Rec: 07/23/18 17:08 AB [id number]) Physical Therapy Current Condition Current Condition Evaluation Date 07/23/18 Treatment Diagnosis s/p R ELY; difficulty in walking Onset Date 07/23/18 Precautions Posterior Hip Precautions No Hip Flexion > 90 degrees No Hip Internal Rotation No Hip Adduction Weight Bearing Status Weight Bearing Status Weight Bear as Tolerated M3 PT-IP Subjective Start: 07/23/18 16:50 Freq: NEEDED Status: Discharge Protocol: Document 07/24/18 14:48 SA (Rec: 07/24/18 14:54 SA [email or web address]) Subjective Physical Therapy Visit Type Type Treatment Note Visit Start Time 13:05 Visit Stop Time 13:32 Total Visit Minutes 27 Number of MARINE INSULATOR Visits 2 Physical Therapy Visit Comments Patient Comments Pt preparing for d/c. Therapy Pain Assessment Pain When Pain Assessed During Mobility Pain Present Pain Present Denied Pain M4 PT-IP Mobility and Gait Start: 07/23/18 16:50 Freq: NEEDED Status: Discharge Protocol: Document 07/24/18 14:48 SA (Rec: 07/24/18 14:54 SA [email or web address]) PT-Transfer Assessment Sit to and From Stand Sit to and from Stand Standby Assistance Equipment Transfer Assistive Device Gait Belt Front Wheeled Walker Orthotic/Prosthetic Devices or Brace: No Transfers Transfer Destination Chair Transfer Ability Level of Assist Standby Assistance Comments Mobility Comments Final review of hip precautions with mobility tasks, continued caregiver training with . Gait Assessment Gait Gait Assistance Required: Standby Assistance Distance (Feet) 120 Able to Maintain Weight Bearing Status Yes During Gait Assistive Devices Assistive Device Gait Belt Front Wheeled Walker Orthotic/Prosthetic Devices or Brace: No Gait Deviations General Gait Pattern Antalgic Decreased Feet Clearance Comments Gait Comments Pt progressing well with step through gait pattern and decresing WBing through UEs/ FWW, cues for safety. Stair Climbing Assessment Evaluation Level of Assist On Stairs Contact Guard Assistance Devices Stair Climbing Assistive Devices Right Railing Technique/Endurance Stair Climbing Direction Ascend and Descend Stair Climbing Technique Step to Step Number of Steps Climbed 3 Query Text: Stair Climbing Set # Repetitions (reps) 1 Comments Stair Climbing Comments With providing SBA-CGA . M5 PT-IP Objective Assessments Start: 07/23/18 16:50 Freq: NEEDED Status: Discharge Protocol: Document 07/23/18 15:15 AB (Rec: 07/23/18 17:08 AB [id number]) Orientation Orientation/Cognition Level of Alertness Alert Orientation Name Place Situation Safety Awareness Decreased Safety Awareness Memory Description Short Term Impaired Varnish Filterer Impaired Comments with slight confusion; requires constant cues to maintain hip precautions Strength Lower Extremity Strength Assessment Right Impaired Hip 3+/5 Knee 3+/5 Muscle Tone Muscle Tone WNL Yes M6 PT-IP Treatment Start: 07/23/18 16:50 Freq: NEEDED Status: Discharge Protocol: Document 07/24/18 14:48 SA (Rec: 07/24/18 14:54 SA [email or web address]) Physical Therapy Treatment Education Education Provided Precautions Weight Bearing Status Post-Op Packet Safety M7 PT-IP Assessment and Plan Start: 07/23/18 16:50 Freq: NEEDED Status: Discharge Protocol: Document 07/24/18 14:48 SA (Rec: 07/24/18 14:54 SA [email or web address]) PT Summary Assessment and Plan Summary Assessment Summary Assisted with getting pt dressed for d/c, review ELY packet and OP PT options with pateint and . Frequency of Treatment Frequency Of Treatment Twice a Day
== END 2018-07-24 13:46 | disposition home or self-care (01) | DRG 470 ==
PROVIDERS: Admitting Provider Orthopaedic Surgery; Family Provider Family Medicine; PCP Family Medicine; Visit Provider Orthopaedic Surgery
PROC: 0SR90JZ Replacement of Right Hip Joint with Synthetic Substitute, Open Approach (ICD-10-PCS; CPT 27130; principal; 2018-07-23 07:45)
DX: M16.11 Unilateral primary osteoarthritis, right hip (principal); Z96.642 Presence of left artificial hip joint; M81.0 Age-related osteoporosis without current pathological fracture; E78.5 Hyperlipidemia, unspecified; J44.9 Chronic obstructive pulmonary disease, unspecified; Z87.891 Personal history of nicotine dependence
CPT/HCPCS: 36415; 72170; 73502; 85014; 85018; 97116; 97161; 97530; C1776; C9290; J0171; J0690; J1100; J1885; J2250; J2405; J2704; J3010; J3370